=== PATIENT | female | born 1940 | race Caucasian/White ===

== ENCOUNTER → 2016-11-11 | Outpatient (CLI) | payer MEDICARE ==
--- NOTE | 2016-11-11 15:29 | RADIOLOGY REPORT PS360 ---
CHEST(2 VIEWS-NOT PORTABLE) HISTORY: CHEST TIGHTNESS AND PRESSURE ORDERING PHYSICIAN: Bandar Barahona MD PATIENT AGE: 76 years COMPARISON: 06/18/2007 FINDINGS: The cardiomediastinal silhouette and pulmonary vascularity are within normal limits. Patchy density is developed in the right lung base and may be due to an area of atelectasis or infiltrate. The remaining lungs are clear. No acute bony anomalies. IMPRESSION: Right lower lobe atelectasis and/or infiltrate
== END ==
LOC: RAD 15:03
DX: R07.89 Other chest pain (principal)

== ENCOUNTER → 2016-12-07 | Outpatient (CLI) | payer MEDICARE ==
--- NOTE | 2016-12-13 16:33 | RADIOLOGY REPORT PS360 ---
EXAM: CT LUNG LOW DOSE WO CONTRAST COMPARISON: No prior CT chest films October 2016 and May 2007 HISTORY: 1.5 packs 50 years = 75 pack-year RADIATION DOSE: CTDI vol(CT dose Index-volume) = to 94mGy DLP (Dose Length Product) = 107.19 mGy-cm FINDINGS: : Indeterminate or Suspicious Lung Nodules(Category3-4B): No suspicious masses or nodules. Indeterminate/Non-actionable Nodules(Category2): Follow-up one year adequate for these most likely benign features.-some may reflect early granulomas given generous density given there small size Right lung: -Small 4X 4.5 mm nodule RUL axial slice 30 sagittal 27th .-qTiny 3 mm nodule anterior RUL axial slice 37 - Small 4.2 mm RUL nodule along major fissure image 42. Benign fissure nodule/node. -Tiny 3.8 mm tiny peripheral nodule anterior RML axial image 45.. -Tiny 3.7 mm nodule peripherally RML axial image 48 -small 4.2mm pleural-based nodule axial image 48 lateral aspect R LL -Tiny peripheral RLL3 mm nodule likely related to scarring axial slice 56 Left lung:. Tiny 3.6 mm mm nodule periphery lateral IRMA. Tiny 3.5 mm nodule at the periphery lingula axial slice 41 Benign nodules(Category1) 6 mm calcified LLL granuloma axial slice 45 LUNG PARENCHYMA---- Emphysema: . Centrilobular emphysematous changes throughout. Hyperexpansion.. Mild diffuse fibrotic changes along the periphery the lung roach bilaterally. Areas of slightly more pronounced fibrosis noted bilaterally. No pleural lesions of significance No Hilar nor mediastinal adenopathy or mass evident. Calcified left hilar nodes reflecting old granulomatous disease. Adenopathy. Minimal diffuse calcification & ascending aorta & aortic arch as well as extending into the origin of great vessels.. OTHER FINDINGS: No other pertinent findings evident IMPRESSION: 1. Lung RADS Category: 2 Small indeterminate more likely benign nodules.-. Follow-up in one year. 2. Other findings: Moderately pronounced Emphysema with mild fibrotic changes about the periphery the lungs bilateral RECOMMENDATIONS:* 12 monthd routine LDCT follow-up* ======== TECHNIQUE: The exam was performed on a [employer] Speed [address] scanner using 3.0 mGy CTDI. A low dose helical CT CHEST was performed on a multi-detector scanner The LDCT was performed in a facility that meets the criteria for the screening program. Data regarding this exam was submitted to ACR which is an approved registry. The order for this exam indicates that it came as a result of a lung cancer screening counseling shard decision-making visit that included all the elements required of such a visit including smoking cessation. The radiologist interpreting this exam meets the CMS criteria for the LDCT lung cancer screening program. The exam is reported using the Lung-RADS classification scale and reported to the ACR registry. NOTE: This study was performed for the specific purposes of lung cancer screening and is not an alternative to diagnostic chest CT.
== END ==
LOC: RAD 11-28 14:00
DX: Z87.891 Personal history of nicotine dependence (principal); Z12.2 Encounter for screening for malignant neoplasm of respiratory organs
CPT/HCPCS: G0297